=== PATIENT | male | born 1945 | race Caucasian/White ===

== ENCOUNTER → 2018-12-20 | Outpatient (CLI) | payer MEDICARE ==
--- NOTE | 2018-12-20 08:54 | CT ---
EXAMINATION TYPE: CT chest w con DATE OF EXAM: 12/20/2018 COMPARISON: Radiograph 09/17/2015 HISTORY: 73-year-old male Lung nodule, asbestosis TECHNIQUE: Contiguous axial scanning of the chest after the administration of 100 mL of Isovue 300. Coronal/sagittal reconstructions performed. CT DLP: 697mGycm. Automatic exposure control utilized for a dose reduction. 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 Heart borderline enlarged without pericardial effusion. Aorta normal caliber with conventional arch vessel branching anatomy. No thoracic lymphadenopathy by CT size criteria. Multiple noncalcified pleural plaques are present, right greater than left. Associated punctate calci fication right lateral mid thorax. The thickest pleural plaque measures up to 7 mm along the lateral right upper lobe, axial image 14 and can be reassessed in 6 months. Additional plaques along the ashlee diaphragms. 3 mm left upper lobe pulmonary nodule, axial image 18. No consolidation or pleural effusion. Visualized upper abdomen is a couple 1.3 cm and smaller hypodense right renal lesions, too small frac tures. CT characterization, probable tiny cysts. Cholecystectomy clips. Bones: Degenerative changes at the AC joints. Anterior endplate spondylosis mid and lower thoracic sp ine. IMPRESSION: 1. Multiple noncalcified pleural plaques, right greater than left compatible with history of prior is as best as exposure. Given greater degree of focal thickening of the couple on the right, six-month follow-up recommended to reassess. 2. A 3 mm left upper lobe pulmonary nodule can also be reassessed at that time.
== END | disposition home or self-care (01) ==
LOC: RADCTMAIN 06:21
PROVIDERS: ATTEND Internal Medicine Critical Care Medicine
DX: R91.1 Solitary pulmonary nodule (principal); J92.9 Pleural plaque without asbestos; Z88.0 Allergy status to penicillin; Z88.1 Allergy status to other antibiotic agents; Z88.2 Allergy status to sulfonamides; R91.8 Other nonspecific abnormal finding of lung field
CPT/HCPCS: 82565; 84520; 71260; 36415; Q9967